=== PATIENT | male | born 1990 ===

== ENCOUNTER 2020-01-03 08:10 | Emergency (ER) | payer OTHER ==
[2020-01-03] VITALS (9 sets, daily range): BP systolic 128–148; BP diastolic 77–97
[~2020-01-03] VITALS: Ht 175.3 cm; Wt 90.9 kg
--- NOTE | 2020-01-03 08:48 | NUR ---
PTS [facility] [place] [phone]
[2020-01-03 08:56] LABS: BASOPHILS # (AUTO) 0.1 X10'3 (0-0.2); BASOPHILS % (AUTO) 0.9 % (0-1); EOSINOPHILS # (AUTO) 0.1 X10'3 (0-0.9); EOSINOPHILS % (AUTO) 1.3 % (0-6); HEMATOCRIT 47.4 % (42.0-52.0); HEMOGLOBIN 16.6 g/dl (14.0-17.9); LYMPHOCYTES # (AUTO) 1.7 X10'3 (1.1-4.8); LYMPHOCYTES % (AUTO) 16.3 % (21-51); MEAN CORPUSCULAR HEMOGLOBIN 33.2 PG (27.0-31.0); MEAN CORPUSCULAR VOLUME 94.7 FL (78-98); MEAN PLATELET VOLUME 7.4 FL (7.4-10.4); MONOCYTES # (AUTO) 0.7 X10'3 (0-0.9); MONOCYTES % (AUTO) 6.5 % (2-12); NEUTROPHILS # (AUTO) 7.6 X10'3 (1.8-7.7); PLATELET COUNT 519 X10'3 (140-440); RED BLOOD COUNT 5.01 X10'6 (4.70-6.10); RED CELL DISTRIBUTION WIDTH 13.4 % (11.5-14.5); WHITE BLOOD COUNT 10.2 X10'3 (4.5-11.0)
[2020-01-03 09:11] LABS: ALANINE AMINOTRANSFERASE 21 U/L (12-78); ALBUMIN 4.3 G/DL (3.4-5.0); ALBUMIN/GLOBULIN RATIO 1.1 (1.1-1.5); ALKALINE PHOSPHATASE 90 IU/L (46-116); ANION GAP 11 (8-16); BILIRUBIN,TOTAL 0.9 MG/DL (0.1-1.0); BLOOD UREA NITROGEN 18 MG/DL (7-18); CALCIUM 9.2 MG/DL (8.5-10.1); CHLORIDE 102 MMOL/L (99-107); GLUCOSE 113 MG/DL (70-104); POTASSIUM 3.6 MMOL/L (3.5-5.1); SODIUM 139 MMOL/L (135-145); TOTAL CARBON DIOXIDE 26.4 MMOL/L (24-32); TOTAL PROTEIN 8.3 G/DL (6.4-8.2)
--- NOTE | 2020-01-03 09:30 | NUR ---
PT RECEIVED VIA GURNEY FROM THE ER. REPORT RECEIVED FROM ER STAFF WITH ALL QUESTIONS ANSWERED. PT TRANSFERRED SELF TO PASS GURNEY USING CRUTCHES. A&O X4. VSS. IV PATENT RIGHT AC #20 WITH NS HANGING AND 950MLS INFUSED PRIOR TO ARRIVAL. IV SOLUTION CHANGED TO LR @ TKO PER ANESTHESIA ORDERS. LEFT ANKLE WITH POSTERIOR SPLINT AND MEHRAN WRAPS PRESENT CDI. LEFT TOES WARM WITH GOOD MOVEMENT AND HEAD OF MARKETING ADOMETRY. PT STATES 7/10 LEFT ANKLE PAIN BUT "ALRIGHT" FOR NOW. PLEASE SEE INTERVENTIONS FOR FURTHER CHARTING.
[2020-01-03 09:37] LABS: ASPARTATE AMINO TRANSFERASE 19 U/L (10-37); BUN/CREATININE RATIO 16.7 (5.4-32.0); CREATININE 1.08 MG/DL (0.60-1.10); eGFR 81 ML/MIN
[2020-01-03] MEDS ORDERED: famotidine 20mg tablet PO ONE (09:38)
[2020-01-03] MEDS ORDERED: ringers solution, lacted 1,000 ML IV SCH ×2 (09:40→12:10)
[2020-01-03] MEDS ORDERED: BUPIVAcaine/PF 2.5 mg/ml (0.25%) 30ml vial ONE (09:44)
[2020-01-03] MEDS ORDERED: cefazolin/dext.iso 2gm/100ml 100 ML IV STA (10:11)
[2020-01-03] MEDS ORDERED: fentaNYL/PF 50MCG/1 ML 2ML syringe ONE ×2 (10:37→11:02)
[2020-01-03] MEDS ORDERED: MIDAZolam 5mg/5ml vial ONE (10:37)
[2020-01-03] MEDS ORDERED: neostigmine methylsulfate 1 MG/ML 10ml vial ONE (12:06)
[2020-01-03] MEDS ORDERED: propofol inj 20 ML IV ONE (12:06)
[2020-01-03] MEDS ORDERED: ROPIVAcaine 0.5% (5mg/ml) 30ml vial ONE (12:06)
[2020-01-03] MEDS ORDERED: ondansetron/PF 4mg/2ml inj ONE (12:06)
[2020-01-03] MEDS ORDERED: glycopyrrolate 0.2mg/ml inj ONE (12:06)
[2020-01-03] MEDS ORDERED: LIDOcaine 1%/PF 5ML 10 MG/ML VIAL ONE (12:06)
[2020-01-03] MEDS ORDERED: dexamethasone sod phosphate 4mg/ml inj. ONE (12:06)
[2020-01-03] MEDS ORDERED: rocuronium 10mg/ml inj IV ONE (12:06)
[2020-01-03] MEDS ORDERED: morphine 2 MG/ML inj. syringe IV PRN (12:10)
[2020-01-03] MEDS ORDERED: morphine 4 MG/ML inj SYRINge IV PRN (12:10)
[2020-01-03] MEDS ORDERED: proCHLORperazine 10 MG/2 ml inj IV PRN (12:10)
[2020-01-03] MEDS ORDERED: ondansetron/PF 4mg/2ml inj IV PRN (12:10)
[2020-01-03] MEDS ORDERED: meperidine/PF 25mg/ml syringe IV PRN ×2 (12:10)
--- NOTE | 2020-01-03 12:10 | NUR ---
Received from OR via BED, accompanied by Anesthesiologist DR LOZANO-- and report given by Anesthesiolgist. PATIENT A&OX4, DENIES PAIN, V/S WNL, NEUROVASCULAR CHECKS INTACT, 20G PIV RUE, SCD ON, LEFT ANKLE SPLINT DRESSING CDI
[2020-01-03] MEDS: meperidine/PF 25mg/ml syringe IV PRN ×2 (12:20→12:25)
[2020-01-03] MEDS ORDERED: acetaminophen 1,000mg/100ml IV 100 ML IV ONE (12:25)
--- NOTE | 2020-01-03 13:20 | NUR ---
PATIENT A&OX4, DENIES PAIN, V/S WNL, NEUROVASCULAR CHECKS INTACT, 20G PIV RUE D/C, SCD OFF, LEFT ANKLE SPLINT DRESSING CDI. I HAVE REVIEWED D/C INSTRUCTIONS WITH PATIENT AND HE HAS VERBALIZED UNDERSTANDING. PATIENT D/C HOME WITH ALL BELONGINGS AND HIS FAMILY GAVE TRANSPORT HOME.
== END 2020-01-03 13:20 | disposition home or self-care (01) ==
LOC: ER 08:11
DX: S82.852A Displaced trimalleolar fracture of left lower leg, initial encounter for closed fracture (principal); W09.8XXA Fall on or from other playground equipment, initial encounter; Y93.44 Activity, trampolining; Y92.89 Other specified places as the place of occurrence of the external cause; Y99.9 Unspecified external cause status
CPT/HCPCS: 27822; 36415; 73600; 76000; 80053; 85025; 96374; 96375; 99285; A6222; C1713; J0131; J1100; J2175; J2250; J2270; J2405; J2704; J2710; J3010; J3490; A4618; A6449; A7000; J2795; J7120